=== PATIENT | male | born 1995 | race Caucasian/White ===

== ENCOUNTER 2021-03-13 14:15 | Emergency (ER) | payer OTHER ==
[2021-03-13 14:29] VITALS: BP 133/85; PULSE 57; TEMP 98.2; BMI 30.3
[2021-03-13] MEDS ORDERED: ACETAMINOPHEN 325 MG TABLET (FP) PO ONE (14:59)
[2021-03-13] MEDS ORDERED: ACETAMINOPHEN 325 MG TABLET (FP) ONE (15:00)
== END 2021-03-13 15:52 | disposition home or self-care (01) ==
LOC: FER 14:15
DX: M54.2 Cervicalgia (principal); R51.9 Headache, unspecified
CPT/HCPCS: 99283-25